=== PATIENT | male | born 1990 | race Two or more races ===

== ENCOUNTER 2016-08-13 19:23 | Emergency (ER) | payer BC ==
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
== END 2016-08-14 00:29 | disposition home or self-care (01) ==
LOC: CFTX 19:23 → CED 19:23 → CFTX 21:36
DX: S50.01XA Contusion of right elbow, initial encounter (principal); V29.9XXA Motorcycle rider (driver) (passenger) injured in unspecified traffic accident, initial encounter; Y92.410 Unspecified street and highway as the place of occurrence of the external cause
CPT/HCPCS: 73070; 73090; 99283